=== PATIENT | female | born 1990 | race Two or more races ===

== ENCOUNTER 2019-04-07 07:08 | Day surgery (SDC) | payer OTHER ==
[2019-04-06 14:55] VITALS: BMI 31.9
[2019-04-07] MEDS ORDERED: PROPOFOL 200 MG/20 ML VIAL ONE (16:21)
--- NOTE | 2019-04-07 17:28 | OP ---
DATE OF PROCEDURE: 04/07/2019 PREPROCEDURE DIAGNOSES: 1. Chronic constipation. 2. Rectal bleeding. POSTPROCEDURE DIAGNOSES: 1. Normal colonoscopy. 2. Likely constipation predominant irritable bowel. RECOMMENDATIONS: 1. Consider Linzess 145 mg p.o. daily as she has failed MiraLAX. Also, she seems to do better with low-starch diet. 2. Follow up in the office p.r.n. ANESTHESIA: TIVA. DESCRIPTION OF PROCEDURE: After the patient was informed of the risks, benefits, and possible complications of endoscopy including perforation, reaction to medication, and aspiration, an informed consent was obtained. The patient was brought to the endoscopy suite, where she was sedated in a gradual fashion. Once she was comfortable, a rectal exam was performed, which was normal. The endoscope was advanced through the anal canal through the colon, advanced to the cecum, which was identified by the ileocecal valve and appendiceal orifice. The prep was very good. The scope was then slowly removed. Withdrawal time was about 10 minutes with some irrigation to remove some liquid material, but we were able to look behind all folds. There were a few diverticula, but no stigmata of bleeding from these. There were no polyps, masses, lesions, or colitis. Retroflexed views were normal. The scope was removed. The patient tolerated the procedure well. There were no complications. Job ID: [id number]
== END 2019-04-07 10:58 | disposition home or self-care (01) ==
LOC: SDC 07:08
PROVIDERS: ATTEND Internal Medicine Gastroenterology
PROC: 0DJD8ZZ Inspection of Lower Intestinal Tract, Via Natural or Artificial Opening Endoscopic (ICD-10-PCS; principal; 2019-04-07)
DX: K59.09 Other constipation (principal); K92.1 Melena; Z91.018 Allergy to other foods
CPT/HCPCS: J2704

== ENCOUNTER 2019-10-27 12:58 | Outpatient (CLI) | payer OTHER ==
--- NOTE | 2019-10-27 13:45 | MRI ---
EXAM: MRI lumbar spine without contrast HISTORY: Back pain COMPARISON: None TECHNIQUE: Multiple planar multisequence MR images were obtained of the lumbar spine without contrast . FINDINGS: The vertebral bodies demonstrate normal height and alignment without fracture or subluxation. There i s desiccation of the L4/5 and L5/S1 intervertebral disc with slight height loss. The prevertebral and paraspinal soft tissues are unremarkable. No marrow signal abnormality is present. The conus medullaris terminates normally at T12/L1. T12/L1: No significant posterior bulge or protrusion. No posterior facet arthrosis. No central aniyah l stenosis. No neural foraminal stenosis L1/2: No significant posterior bulge or protrusion. No posterior facet arthrosis. No central canal stenosis. No neural foraminal stenosis L2/3: No significant posterior bulge or protrusion. No posterior facet arthrosis. No central canal stenosis. No neural foraminal stenosis L3/4: No significant posterior bulge or protrusion. No posterior facet arthrosis. No central canal stenosis. No neural foraminal stenosis L4/5: Small generalized concentric disc bulge. No posterior facet arthrosis. Mild central canal wu nosis. Moderate bilateral neural foraminal stenosis L5/S1: Small generalized concentric disc bulge. No posterior facet arthrosis. No central canal sten osis. 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
== END 2019-10-27 12:59 | disposition home or self-care (01) ==
LOC: BICMRI 12:58
PROVIDERS: ATTEND Family Medicine
DX: M54.5 Low back pain (principal); G89.29 Other chronic pain; M47.817 Spondylosis without myelopathy or radiculopathy, lumbosacral region
CPT/HCPCS: 72148

== ENCOUNTER 2020-12-28 12:33 | Outpatient (CLI) | payer OTHER | END 2020-12-28 12:34 | disposition home or self-care (01) | LOC: BICMRI 12:33 | PROVIDERS: ATTEND Family Medicine | DX: M51.16 Intervertebral disc disorders with radiculopathy, lumbar region (principal); M48.062 Spinal stenosis, lumbar region with neurogenic claudication; M47.26 Other spondylosis with radiculopathy, lumbar region; M51.17 Intervertebral disc disorders with radiculopathy, lumbosacral region; Q05.7 Lumbar spina bifida without hydrocephalus | CPT/HCPCS: 72148 ==